=== PATIENT | female | born 1955 | race Hispanic/Latino ===

== ENCOUNTER 2022-12-23 11:29 | Inpatient (IN) | payer MEDICARE ==
[~2022-12-23] VITALS: Ht 157.5 cm; Wt 95.6 kg
[2022-12-23 12:58] LABS: BASOPHILS % (AUTO) 0.2 % (0.0-5.0); EOSINOPHILS % (AUTO) 0.9 % (0.0-8.0); HEMATOCRIT 44.8 % (36-48); LYMPHOCYTES % (AUTO) 26.1 % (21.0-51.0); MEAN CORPUSCULAR HGB CONC 30.1 g/dL (32.0-36.0); MEAN CORPUSCULAR VOLUME 79.7 fL (79-99); MONOCYTES % (AUTO) 4.5 % (3.0-13.0); PLATELET COUNT (AUTO) 342 K/uL (130-400); RED BLOOD CELL COUNT(AUTO) 5.62 MIL/uL (4.00-5.50); RED CELL DISTRIBUTION WIDTH 19.5 % (11.0-15.5); WHITE BLOOD COUNT (AUTO) 12.9 K/uL (4.8-10.8)
[2022-12-23 13:14] LABS: CARBON DIOXIDE 33 mmol/L (21-32); CHLORIDE 106 mmol/L (101-111); CREATININE 0.7 mg/dL (0.5-1.5); GLOMERULAR FILTR. RATE CALC 95 mL/min (>90); GLUCOSE,RANDOM 120 mg/dL (70-105); POTASSIUM 3.8 mmol/L (3.5-5.1); SODIUM SERUM 144 mmol/L (136-145); UREA NITROGEN, BLOOD 16 mg/dL (7-18)
[2022-12-23 13:17] LABS: ALANINE AMINOTRANSFERASE 20 U/L (12-78); ALBUMIN 3.6 g/dL (3.5-5.0); ASPARTATE AMINOTRANSFERASE 13 U/L (10-37); TOTAL PROTEIN, SERUM 7.6 g/dL (6.0-8.3)
[2022-12-23] MEDS ORDERED: POTASSIUM CHLORIDE 20MEQ/100ML 100 ML IV PRN ×2 (16:00)
[2022-12-23] MEDS ORDERED: NITROGLYCERIN 0.4 MG SL TAB SL PRN (16:00)
[2022-12-23] MEDS ORDERED: ALBUTEROL 0.083% 2.5 MG/3 ML INH IH PRN (16:00)
[2022-12-23] MEDS ORDERED: MAGNESIUM 2GM PREMIX 50ML 50 ML IV PRN (16:00)
[2022-12-23] MEDS ORDERED: GLUCAGON 1MG KIT 1 MG ML IM PRN (16:00)
[2022-12-23] MEDS ORDERED: ZOLPIDEM TARTRATE 5 MG TAB PO PRN (16:00)
[2022-12-23] MEDS ORDERED: HYDRALAZINE 25MG TABLET PO PRN (16:00)
[2022-12-23] MEDS ORDERED: GUAIFENESIN-DM 200/20 MG 10 ML PO PRN (16:00)
[2022-12-23] MEDS ORDERED: DEXTROSE 50%-WATER 50 ML DISP.SYRIN IV PRN (16:00)
[2022-12-23] MEDS ORDERED: ACETAMINOPHEN 325 MG TAB PO PRN ×2 (16:00)
[2022-12-23] MEDS ORDERED: POTASSIUM CHLORIDE 10% ELIXIR 20 MEQ/15 ML UDCUP PO PRN (16:00)
[2022-12-23] MEDS ORDERED: LOPERAMIDE HCL 2 MG CAP PO PRN (16:00)
[2022-12-23] MEDS ORDERED: POLYETHYLENE GLYCOL 3350 17 GM POWD.PACK PO PRN (16:00)
[2022-12-23] MEDS ORDERED: GUAIFENESIN SUGAR-FREE 100 MG/5 ML UDCUP PO PRN (16:00)
[2022-12-23] MEDS ORDERED: ONDANSETRON 4MG INJ IV PRN (16:00)
[2022-12-23] MEDS ORDERED: ARTIFICAL TEARS SOL 15 ML OP PRN (16:00)
[2022-12-23] MEDS ORDERED: ALPRAZOLAM 0.5 MG TABLET PO PRN (16:00)
[2022-12-23] MEDS ORDERED: DiphenhydrAMINE HCL 50 MG/ML VIAL IV PRN (16:00)
[2022-12-23] MEDS ORDERED: DOCUSATE SODIUM 100 MG CAP PO PRN (16:00)
[2022-12-23] MEDS: INSULIN HUMULIN R 100 UNIT/ML 3ML SQ SCH ×2 (16:30→21:00)
[2022-12-23] MEDS ORDERED: METF-445 PO (20:57)
[2022-12-23] MEDS ORDERED: ATOR20TA65 PO (20:57)
[2022-12-23] MEDS ORDERED: EMPA25TA PO (20:57)
[2022-12-23] MEDS: FAMOTIDINE 20MG VIAL IV SCH (21:51)
[2022-12-23] MEDS: SOLU-MEDROL 125MG VIAL IVP SCH (21:59)
[2022-12-24] MEDS: SOLU-MEDROL 125MG VIAL IVP SCH (03:00)
[2022-12-24 06:55] LABS: BASOPHILS % (AUTO) 0.2 % (0.0-5.0); LYMPHOCYTES % (AUTO) 9.5 % (21.0-51.0); MEAN CORPUSCULAR HEMOGLOBIN 24.2 pg (27.0-33.0); MEAN CORPUSCULAR HGB CONC 30.4 g/dL (32.0-36.0); MEAN CORPUSCULAR VOLUME 79.5 fL (79-99); MONOCYTES % (AUTO) 0.4 % (3.0-13.0); NEUTROPHILS % (AUTO) 89.4 % (40.0-77.0); PLATELET COUNT (AUTO) 300 K/uL (130-400); RED BLOOD CELL COUNT(AUTO) 5.66 MIL/uL (4.00-5.50); RED CELL DISTRIBUTION WIDTH 19.6 % (11.0-15.5); WHITE BLOOD COUNT (AUTO) 11.1 K/uL (4.8-10.8)
[2022-12-24 07:10] LABS: HEMOGLOBIN A1C 6.2 % (4.0-6.0)
[2022-12-24 07:11] LABS: ALBUMIN 3.4 g/dL (3.5-5.0); CREATININE 0.6 mg/dL (0.5-1.5); MAGNESIUM 1.9 mg/dL (1.80-2.40); POTASSIUM 3.8 mmol/L (3.5-5.1); TOTAL PROTEIN, SERUM 7.5 g/dL (6.0-8.3)
[2022-12-24] MEDS: INSULIN HUMULIN R 100 UNIT/ML 3ML SQ SCH ×3 (07:30→16:30)
[2022-12-24] MEDS ORDERED: PHARMACY COMMUNICATION MISC SCH (09:00)
[2022-12-24] MEDS: ENOXAPARIN SODIUM 40 MG/0.4 ML SYRINGE SQ SCH (09:41)
[2022-12-24] MEDS: FAMOTIDINE 20MG VIAL IV SCH ×2 (09:42→21:35)
[2022-12-24] MEDS: ATORVASTATIN 20 MG TABLET PO SCH (09:42)
[2022-12-24] MEDS: DEXAMETHASONE SOD PHOSPHATE 4 MG/ML 1ML VIAL IVP SCH ×3 (09:42→21:35)
[2022-12-24 15:12] LABS: ABG HCO3 21.7 mmol/L (21.0-28.0); ABG OXYGEN SATURATION 94.5 % (95.0-99.0); ABG PCO2 31 mmHg (32-45)
[2022-12-24 16:25] VITALS: BP 140/71
[2022-12-24 16:28] LABS: APPEARANCE,URINE CLEAR (CLEAR); BILIRUBIN,URINE NEGATIVE (NEGATIVE); COLOR,URINE LIGHT-YELLOW (YELLOW); GLUCOSE, URINE (UA) >=1000 mg/dL (NEGATIVE); KETONES,URINE 5 mg/dL (NEGATIVE); LEUKOCYTE ESTERASE ,URINE NEGATIVE Leu/uL (NEGATIVE); NITRATE,URINE NEGATIVE (NEGATIVE); OCCULT BLOOD,URINE NEGATIVE (NEGATIVE); PROTEIN,URINE NEGATIVE (NEGATIVE); UROBILINOGEN,URINE 0.2 mg/dL (0.2-1.0)
[2022-12-24 16:39] LABS: BACTERIA,URINE RARE /HPF (None Seen); RBC,URINE 0-1 /HPF (0-1); SQUAMOUS EPITHELIAL CELL,UR RARE /HPF (0-2); YEAST,URINE BUDDING RARE /HPF (None Seen)
[2022-12-24 16:49] LABS: INR 0.96 (0.85-1.15); PROTHROMBIN TIME 10.5 SEC (9.6-11.6)
[2022-12-24 16:50] LABS: PARTIAL THROMBOPLASTIN TIME 29.3 SEC (26.3-35.5)
[2022-12-24 19:49] VITALS: BP 153/67
[2022-12-24 23:53] VITALS: BP 143/73
[2022-12-25] VITALS (17 sets, daily range): BP systolic 112–174; BP diastolic 58–84
[2022-12-25 04:15] LABS: BASOPHILS % (AUTO) 0.1 % (0.0-5.0); MEAN CORPUSCULAR HEMOGLOBIN 24.7 pg (27.0-33.0); MEAN CORPUSCULAR HGB CONC 30.7 g/dL (32.0-36.0); MEAN CORPUSCULAR VOLUME 80.5 fL (79-99); MONOCYTES % (AUTO) 2.9 % (3.0-13.0); NEUTROPHILS % (AUTO) 89.3 % (40.0-77.0); PLATELET COUNT (AUTO) 350 K/uL (130-400); RED BLOOD CELL COUNT(AUTO) 5.22 MIL/uL (4.00-5.50); WHITE BLOOD COUNT (AUTO) 18.2 K/uL (4.8-10.8)
[2022-12-25 04:29] LABS: ALBUMIN 3.2 g/dL (3.5-5.0); CREATININE 0.9 mg/dL (0.5-1.5); MAGNESIUM 2.4 mg/dL (1.80-2.40); PHOSPHORUS 3.7 mg/dL (2.5-4.9); POTASSIUM 3.9 mmol/L (3.5-5.1); TOTAL PROTEIN, SERUM 6.9 g/dL (6.0-8.3)
[2022-12-25] MEDS ORDERED: CEFAZOLIN SODIUM 2 GM VIAL ONE (06:50)
[2022-12-25] MEDS ORDERED: THROMBIN-JMI 20000 UNIT KIT TP ONE (07:05)
[2022-12-25] MEDS ORDERED: CEFAZOLIN SODIUM 1 GM VIAL ONE (07:06)
[2022-12-25] MEDS: ATORVASTATIN 20 MG TABLET PO SCH (09:00)
[2022-12-25] MEDS: ENOXAPARIN SODIUM 40 MG/0.4 ML SYRINGE SQ SCH (09:00)
[2022-12-25] MEDS ORDERED: MANNITOL 20% 250ML BAG 250 ML IV ONE ×2 (10:08→10:37)
[2022-12-25] MEDS ORDERED: HYDROMORPHONE 1 MG INJ ONE (11:26)
[2022-12-25] MEDS ORDERED: MIDAZOLAM HCL 1 MG/ML 2ML VIAL ONE (11:33)
[2022-12-25] MEDS ORDERED: LIDOCAINE PF 100MG/5ML (2%) SYRINGE 5ML ONE (11:33)
[2022-12-25] MEDS ORDERED: SUCCINYLCHOLINE CHLORIDE 20 MG/ML 10 ML VIAL ONE (11:33)
[2022-12-25] MEDS ORDERED: PROPOFOL 10 MG/ML 20ML VIAL IV ONE ×2 (11:33→12:48)
[2022-12-25] MEDS ORDERED: ROCURONIUM 10MG/1ML SYR 10 MG/ML ML ONE (11:34)
[2022-12-25] MEDS ORDERED: FENTANYL CITRATE PF 50 MCG/1 ML 2ML VIAL ONE ×2 (11:34→16:09)
[2022-12-25] MEDS ORDERED: PROPOFOL 1000 MG/100 ML 100 ML IV ONE ×2 (11:35)
[2022-12-25] MEDS ORDERED: ONDANSETRON 4MG INJ ONE ×2 (12:36→16:30)
[2022-12-25] MEDS ORDERED: DEXAMETHASONE SOD PHOSPHATE 4 MG/ML 1ML VIAL ONE ×2 (12:52→12:53)
[2022-12-25] MEDS ORDERED: 0.9%NACL 10ML VIAL IVP PRN (15:30)
[2022-12-25] MEDS ORDERED: MORPHINE 2 MG SYG IVP PRN (15:30)
[2022-12-25] MEDS ORDERED: PROMETHAZINE HCL 25 MG/ML 1ML AMPULE IM PRN (15:30)
[2022-12-25] MEDS ORDERED: ALBUTEROL 0.083% 2.5 MG/3 ML INH IH PRN (16:00)
[2022-12-25] MEDS ORDERED: HYDRALAZINE 20MG/ML VIAL ONE (16:30)
[2022-12-25] MEDS ORDERED: ONDANSETRON 4MG INJ IVP ONE (17:00)
[2022-12-25] MEDS ORDERED: HYDRALAZINE 20MG/ML VIAL IV ONE (17:00)
[2022-12-25] MEDS ORDERED: CEFAZOLIN SODIUM 2 GM VIAL IVPB ONE (20:00)
[2022-12-25] MEDS: INSULIN HUMULIN R 100 UNIT/ML 3ML SQ SCH (20:39)
[2022-12-25] MEDS: FAMOTIDINE 20MG VIAL IV SCH (20:40)
[2022-12-25] MEDS: METFORMIN HCL 850 MG TABLET PO SCH (21:00)
[2022-12-25] MEDS: DEXAMETHASONE SOD PHOSPHATE 4 MG/ML 1ML VIAL IVP SCH (22:04)
[2022-12-26] MEDS: DEXAMETHASONE SOD PHOSPHATE 4 MG/ML 1ML VIAL IVP SCH ×3 (03:33→15:30)
[2022-12-26 04:15] LABS: HEMATOCRIT 40.6 % (36-48); MEAN CORPUSCULAR HEMOGLOBIN 24.6 pg (27.0-33.0); MEAN CORPUSCULAR HGB CONC 30.3 g/dL (32.0-36.0); MEAN CORPUSCULAR VOLUME 81.2 fL (79-99); RED CELL DISTRIBUTION WIDTH 19.7 % (11.0-15.5); WHITE BLOOD COUNT (AUTO) 19.8 K/uL (4.8-10.8)
[2022-12-26 04:22] VITALS: BP 137/64
[2022-12-26] MEDS: LACTATED RINGERS 1000ML 1,000 ML IV SCH ×2 (04:25→16:55)
[2022-12-26 04:51] LABS: CREATININE 0.6 mg/dL (0.5-1.5); POTASSIUM 3.7 mmol/L (3.5-5.1)
[2022-12-26] MEDS: INSULIN HUMULIN R 100 UNIT/ML 3ML SQ SCH ×4 (06:22→21:00)
[2022-12-26 08:00] VITALS: BP 150/76
[2022-12-26] MEDS: ATORVASTATIN 20 MG TABLET PO SCH (10:03)
[2022-12-26] MEDS: METFORMIN HCL 850 MG TABLET PO SCH ×2 (10:03→21:23)
[2022-12-26] MEDS: ENOXAPARIN SODIUM 40 MG/0.4 ML SYRINGE SQ SCH (10:03)
[2022-12-26] MEDS: FAMOTIDINE 20MG VIAL IV SCH ×2 (10:03→21:23)
[2022-12-26] MEDS: EMPAGLIFLOZIN 25MG TABLET PO SCH (10:03)
[2022-12-26 12:00] VITALS: BP 140/64
[2022-12-26 16:00] VITALS: BP 125/59
[2022-12-26 20:00] VITALS: BP 134/53
[2022-12-27] VITALS: BP 140/69
[2022-12-27 04:00] VITALS: BP 131/65
[2022-12-27] MEDS: INSULIN HUMULIN R 100 UNIT/ML 3ML SQ SCH ×4 (06:01→20:02)
[2022-12-27 08:00] VITALS: BP 129/61
[2022-12-27] MEDS: ATORVASTATIN 20 MG TABLET PO SCH (08:55)
[2022-12-27] MEDS: METFORMIN HCL 850 MG TABLET PO SCH ×2 (08:55→20:07)
[2022-12-27] MEDS: FAMOTIDINE 20MG VIAL IV SCH ×2 (08:55→20:07)
[2022-12-27] MEDS: EMPAGLIFLOZIN 25MG TABLET PO SCH (08:55)
[2022-12-27] MEDS: ENOXAPARIN SODIUM 40 MG/0.4 ML SYRINGE SQ SCH (08:56)
[2022-12-27] MEDS: KCL 20 MEQ ERTAB PO PRN ×2 (08:56→16:42)
[2022-12-27 11:43] VITALS: BP 130/69
[2022-12-27 16:00] VITALS: BP 125/67
[2022-12-27] MEDS: POLYETHYLENE GLYCOL 3350 17 GM POWD.PACK PO SCH (19:30)
[2022-12-27] MEDS ORDERED: ONDANSETRON 4MG INJ IVP PRN (19:30)
[2022-12-27 20:00] VITALS: BP 140/88
[2022-12-27] MEDS: HYDROCODONE/ACETAMINOPHEN 5/325 MG TAB PO PRN (20:16)
[2022-12-28] VITALS: BP 142/70
[2022-12-28 04:00] VITALS: BP 114/53
[2022-12-28 04:33] LABS: BASOPHILS % (AUTO) 0.1 % (0.0-5.0); EOSINOPHILS % (AUTO) 0.7 % (0.0-8.0); LYMPHOCYTES % (AUTO) 34.2 % (21.0-51.0); MEAN CORPUSCULAR HEMOGLOBIN 24.2 pg (27.0-33.0); MEAN CORPUSCULAR HGB CONC 29.5 g/dL (32.0-36.0); MONOCYTES % (AUTO) 7.5 % (3.0-13.0); NEUTROPHILS % (AUTO) 56.7 % (40.0-77.0); PLATELET COUNT (AUTO) 297 K/uL (130-400); RED BLOOD CELL COUNT(AUTO) 5.12 MIL/uL (4.00-5.50); RED CELL DISTRIBUTION WIDTH 19.3 % (11.0-15.5); WHITE BLOOD COUNT (AUTO) 12.3 K/uL (4.8-10.8)
[2022-12-28 04:49] LABS: CREATININE 0.6 mg/dL (0.5-1.5)
[2022-12-28] MEDS: INSULIN HUMULIN R 100 UNIT/ML 3ML SQ SCH ×4 (05:46→21:00)
[2022-12-28 08:00] VITALS: BP 148/74
[2022-12-28] MEDS: POLYETHYLENE GLYCOL 3350 17 GM POWD.PACK PO SCH (08:12)
[2022-12-28] MEDS: METFORMIN HCL 850 MG TABLET PO SCH ×2 (08:12→19:59)
[2022-12-28] MEDS: FAMOTIDINE 20MG VIAL IV SCH ×2 (08:12→19:59)
[2022-12-28] MEDS: ATORVASTATIN 20 MG TABLET PO SCH (08:12)
[2022-12-28] MEDS: EMPAGLIFLOZIN 25MG TABLET PO SCH (08:12)
[2022-12-28] MEDS: ENOXAPARIN SODIUM 40 MG/0.4 ML SYRINGE SQ SCH (08:13)
[2022-12-28 12:00] VITALS: BP 108/54
[2022-12-28 16:00] VITALS: BP 120/79
[2022-12-28] MEDS: HYDROCODONE/ACETAMINOPHEN 5/325 MG TAB PO PRN (19:59)
[2022-12-28 20:00] VITALS: BP 146/67
[2022-12-29] VITALS: BP 127/64
[2022-12-29 04:00] VITALS: BP 124/67
[2022-12-29 04:36] LABS: BASOPHILS % (AUTO) 0.1 % (0.0-5.0); LYMPHOCYTES % (AUTO) 33.8 % (21.0-51.0); MEAN CORPUSCULAR HEMOGLOBIN 24.5 pg (27.0-33.0); MEAN CORPUSCULAR HGB CONC 30.5 g/dL (32.0-36.0); MEAN CORPUSCULAR VOLUME 80.5 fL (79-99); MONOCYTES % (AUTO) 5.8 % (3.0-13.0); NEUTROPHILS % (AUTO) 58.6 % (40.0-77.0); PLATELET COUNT (AUTO) 325 K/uL (130-400); RED BLOOD CELL COUNT(AUTO) 5.34 MIL/uL (4.00-5.50); RED CELL DISTRIBUTION WIDTH 19.2 % (11.0-15.5); WHITE BLOOD COUNT (AUTO) 11.6 K/uL (4.8-10.8)
[2022-12-29 04:47] LABS: CREATININE 0.6 mg/dL (0.5-1.5)
[2022-12-29] MEDS: INSULIN HUMULIN R 100 UNIT/ML 3ML SQ SCH ×3 (05:56→15:58)
[2022-12-29 08:00] VITALS: BP 149/75
[2022-12-29] MEDS: POLYETHYLENE GLYCOL 3350 17 GM POWD.PACK PO SCH (09:53)
[2022-12-29] MEDS: EMPAGLIFLOZIN 25MG TABLET PO SCH (09:54)
[2022-12-29] MEDS: ATORVASTATIN 20 MG TABLET PO SCH (09:54)
[2022-12-29] MEDS: FAMOTIDINE 20MG VIAL IV SCH (09:54)
[2022-12-29] MEDS: METFORMIN HCL 850 MG TABLET PO SCH (09:54)
[2022-12-29] MEDS: ENOXAPARIN SODIUM 40 MG/0.4 ML SYRINGE SQ SCH (09:55)
[2022-12-29 11:23] VITALS: BP 133/66
== END 2022-12-29 17:30 | DRG 472 ==
LOC: EDH 11:29 → EDHIP 15:42 → 3CH 12-24 18:23 → 4AH 12-25 16:07
PROVIDERS: ADMIT Internal Medicine Critical Care Medicine; ATTEND Internal Medicine Critical Care Medicine
PROC: 0RG10J0 Fusion of Cervical Vertebral Joint with Synthetic Substitute, Anterior Approach, Anterior Column, Open Approach (ICD-10-PCS; principal; 2022-12-25 11:48)
DX: M50.021 Cervical disc disorder at C4-C5 level with myelopathy (principal); M47.12 Other spondylosis with myelopathy, cervical region; R29.6 Repeated falls; Z20.822 Contact with and (suspected) exposure to COVID-19; E11.9 Type 2 diabetes mellitus without complications; I10 Essential (primary) hypertension; Z68.38 Body mass index [BMI] 38.0-38.9, adult; E66.01 Morbid (severe) obesity due to excess calories; E78.00 Pure hypercholesterolemia, unspecified; Z96.653 Presence of artificial knee joint, bilateral; Z91.81 History of falling; Z98.1 Arthrodesis status
CPT/HCPCS: 36415; 36600; 70450; 70551; 71045; 72020; 72141; 72146; 72148; 80048; 80053; 81001; 82435; 82803; 82947; 82948; 83036; 83605; 83690; 83735; 84100; 84132; 84295; 84443; 84484; 85018; 85025; 85027; 85610; 85730; 87040; 87635; 87804; 93005; 93880; 94010; 97039; G0378; J0330; J0360; J0690; J1100; J1170; J1650; J2001; J2250; J2405; J2704; J2930; J3010; J3490

== ENCOUNTER → 2023-01-23 | Outpatient (CLI) | payer MEDICARE ==
[~2023-01-23] MED LIST: ATOR20TA65 PO; EMPA25TA PO; METF-445 PO
== END | disposition home or self-care (01) ==
LOC: RAH 08:48
PROVIDERS: ATTEND Neurological Surgery
DX: M43.22 Fusion of spine, cervical region (principal); M47.812 Spondylosis without myelopathy or radiculopathy, cervical region
CPT/HCPCS: 72040

== ENCOUNTER → 2023-07-07 | Outpatient (CLI) | payer MEDICARE | END | disposition home or self-care (01) | LOC: RAH 11:04 | PROVIDERS: ATTEND Neurological Surgery | DX: M48.02 Spinal stenosis, cervical region (principal); M43.22 Fusion of spine, cervical region; M50.221 Other cervical disc displacement at C4-C5 level; G99.2 Myelopathy in diseases classified elsewhere; M96.1 Postlaminectomy syndrome, not elsewhere classified; M54.12 Radiculopathy, cervical region; R26.89 Other abnormalities of gait and mobility | CPT/HCPCS: 72141 ==

== ENCOUNTER → 2023-11-19 | Outpatient (CLI) | payer MEDICARE | END | disposition home or self-care (01) | LOC: RAH 09:59 | PROVIDERS: ATTEND Neurological Surgery | DX: Z47.89 Encounter for other orthopedic aftercare (principal); R22.43 Localized swelling, mass and lump, lower limb, bilateral | CPT/HCPCS: 93970 ==

== ENCOUNTER → 2023-12-04 | Outpatient (CLI) | payer MEDICARE | END | disposition home or self-care (01) | LOC: RAH 13:55 | PROVIDERS: ATTEND Neurological Surgery | DX: Z47.89 Encounter for other orthopedic aftercare (principal); T81.89XA Other complications of procedures, not elsewhere classified, initial encounter; M47.816 Spondylosis without myelopathy or radiculopathy, lumbar region; M48.061 Spinal stenosis, lumbar region without neurogenic claudication; M51.36 Other intervertebral disc degeneration, lumbar region; R16.0 Hepatomegaly, not elsewhere classified | CPT/HCPCS: 72148 ==

== ENCOUNTER → 2024-01-15 | Outpatient (CLI) | payer MEDICARE | END | disposition home or self-care (01) | LOC: RAH 14:18 | PROVIDERS: ATTEND Neurological Surgery | DX: M47.812 Spondylosis without myelopathy or radiculopathy, cervical region (principal); M50.31 Other cervical disc degeneration, high cervical region; M50.323 Other cervical disc degeneration at C6-C7 level; M50.322 Other cervical disc degeneration at C5-C6 level; M50.321 Other cervical disc degeneration at C4-C5 level; G99.2 Myelopathy in diseases classified elsewhere; M48.02 Spinal stenosis, cervical region; R26.89 Other abnormalities of gait and mobility; M96.1 Postlaminectomy syndrome, not elsewhere classified | CPT/HCPCS: 72141 ==

== ENCOUNTER → 2024-05-09 | Outpatient (CLI) | payer MEDICARE | END | disposition home or self-care (01) | LOC: RAH 11:46 | PROVIDERS: ATTEND Physician Assistant Surgical | DX: Z48.89 Encounter for other specified surgical aftercare (principal); M47.812 Spondylosis without myelopathy or radiculopathy, cervical region; Z98.1 Arthrodesis status | CPT/HCPCS: 72040 ==

== ENCOUNTER → 2024-08-30 | Outpatient (CLI) | payer OTHER ==
[~2024-08-30] MED LIST changes: +GADOTERATE MEGLUMINE 10 MMOL/20 ML VIAL IV ONE
--- NOTE | 2024-08-30 14:26 | HMCIMG ---
Exam Type: MR SPINAL CANAL, LUMB W/WO CON Clinical Information: Postlaminectomy syndrome, not elsewhere classified Comparison: None Findings: Status post posterior fusion and decompression L4-L5. Grade 1 anterolisthesis of L4 over 5, chronic. Multilevel disc protrusions with mild neural foraminal narrowing and nerve root impingement at each level. This is compounded by facet joint hypertrophy at all levels. No acute fractures or dislocations. IMPRESSION: Degenerative and chronic changes. After contrast administration, there is no abnormal enhancement.
--- NOTE | 2024-08-30 14:29 | HMCIMG ---
Exam Type: MR SPINAL CANAL, CERV W/WO CON Clinical Information: M96.1 Postlaminectomy syndrome, not elsewhere classified Comparison: None Findings: Reversal of normal cervical lordosis consistent with spasm. Status post postoperative fusion of the C3-4, C4-5 and C5-6 discs. High signal intensity of the cord at the C4-5 level is suggestive of myelomalacia, possibly from prior impingement. At this time, no cord compression is seen. No large protrusions or extrusions. IMPRESSION: Postoperative and degenerative changes. After contrast administration, there is no abnormal enhancement.
== END | disposition home or self-care (01) ==
LOC: RAH 12:47
PROVIDERS: ATTEND Neurological Surgery
DX: M47.26 Other spondylosis with radiculopathy, lumbar region (principal); M47.22 Other spondylosis with radiculopathy, cervical region; M43.16 Spondylolisthesis, lumbar region; M48.061 Spinal stenosis, lumbar region without neurogenic claudication; M96.1 Postlaminectomy syndrome, not elsewhere classified; Z98.1 Arthrodesis status; G99.2 Myelopathy in diseases classified elsewhere
CPT/HCPCS: 72156; 72158; A9575

== ENCOUNTER → 2024-11-25 | Outpatient (CLI) | payer OTHER ==
[~2024-11-25] MED LIST changes: -GADOTERATE MEGLUMINE 10 MMOL/20 ML VIAL IV ONE
== END | disposition home or self-care (01) ==
LOC: RAH 13:47
PROVIDERS: ATTEND Nurse Practitioner Family
DX: Z12.31 Encounter for screening mammogram for malignant neoplasm of breast (principal)
CPT/HCPCS: 77067

== ENCOUNTER 2025-03-21 07:59 | Day surgery (SDC) | payer OTHER ==
[2025-03-20 12:54] LABS: CREATININE 0.8 mg/dL (0.5-1.0); GLOMERULAR FILTR. RATE CALC 80.0 mL/min (>90); GLUCOSE,RANDOM 131.0 mg/dL (70-105); SODIUM SERUM 141.0 mmol/L (136-145); UREA NITROGEN, BLOOD 14.0 mg/dL (7-18)
[2025-03-20 12:58] VITALS: BP 143/62; PULSE 93; RESP 17; TEMP 97.7
[2025-03-21] VITALS (13 sets, daily range): BP systolic 126–164; BP diastolic 56–82; PULSE 61–79; RESP 12–21; TEMP 97.2–97.9
[~2025-03-21] VITALS: Ht 157.5 cm; Wt 102.4 kg
[~2025-03-21 07:59] MED LIST changes: -EMPA25TA PO; +GABA-529 PO; +METF-444 PO; -METF-445 PO
[2025-03-21] MEDS ORDERED: 0.9%NACL 1000ML 1,000 ML IV ONE (08:36)
[2025-03-21] MEDS ORDERED: MIDAZOLAM HCL 1 MG/ML 2ML VIAL ONE (09:16)
[2025-03-21] MEDS ORDERED: LIDOCAINE PF 100MG/5ML (2%) SYRINGE 5ML ONE (09:16)
[2025-03-21] MEDS ORDERED: ACET-2079 PO (10:40)
--- NOTE | 2025-03-21 10:46 | OP ---
Operative Note: DATE OF PROCEDURE: 03/21/25 SURGEON: LOS POLK MD SLITTER AND REWINDER MACHINE OPERATOR: [Janny Meadows CFA] ANESTHESIA: [General anesthesia plus local] ANESTHESIOLOGIST/AUTOMOTIVE MECHANICAL ENGINEER: [Robert Montelongo CRNA] PREOPERATIVE DIAGNOSIS: [Left upper extremity carpal tunnel syndrome] POSTOPERATIVE DIAGNOSIS: [Same] PROCEDURE: [Left carpal tunnel release] ESTIMATED BLOOD LOSS: [Less than 10 mL] INDICATIONS: [The patient is a 69-year-old female with a history of carpal tunnel syndrome bilaterally being admitted for a carpal tunnel release after failing conservative treatment. The patient reports a history that many years ago she had a carpal release but the examination revealed no surgical scars. The patient is brought to the operating room for an open carpal tunnel release procedure that she understood, risks, benefits and possible complications and agreed signed the consent form] DESCRIPTION OF PROCEDURE: [ [After adequate general anesthesia was achieved, the left arm was prepped and draped in the usual manner previous placement of the tourniquet in the proximal arm. The extremity was exsanguinated and the tourniquet was inflated to 250 mmHg. Attention was given to the volar aspect of the wrist where after identification of the landmarks we proceeded to make a curvilinear incision through the skin starting at the inter-thenar area and then extending it proximally along the ulnar side of the palmaris longus tendon. The dissection was then extended into the subcutaneous tissue identifying proxi nick the palmar fascia of the forearm which was then opened and then elevating it to separate from the median nerve and we proceeded then to split proximally under the skin. Then we directed the tenotomy scissors distally and split the fascia down to the carpal ligament protecting the nerve with a [place] retractor. At this point we use a freer to dissect the synovial tissue from the undersurface of the carpal ligament through the canal and after this was achieved we proceeded to gradually cut through the ligament with the 15 blade in a longitudinal manner having the retractor under the ligament to protect the nerve. Once we reached the distal end of the ligament we proceeded to spread the fibers with a hemostat, the nerve was explored and noted to be intact. There were no signs of previous surgery in this area. The medial nerve show thinning on its diameter of the carpal ligament area. The wound was irrigated with antibiotic solution and then we proceeded to infiltrate the periphery of the wound with 1% lidocaine in the subcutaneous tissue and after this was achieved we proceeded to pack the wound and slowly deflated the tourniquet. Further irrigation was done and minimal bleeders were controlled with the use of the Bovie cautery. The wound was then closed with approximation of the subcutaneous tissue with #3-0 Vicryl inverted stitches and the skin was closed with 3-0 nylon vertical mattress stitches. The wound was covered with Xeroform, 4 x 4 and then we proceeded to apply a soft dressing with cast padding followed by application of an Isiah bandage. The drapes were removed and the patient was transferred to a stretcher and taken to recovery room for follow-up by anesthesia. There were no complications during the procedure.] LOS POLK MD Mar 21, 2025 10:46
--- NOTE | 2025-03-21 12:15 | NUR ---
BOTH PT AND SPOUSE GIVEN VERBAL AND WRITTEN DISCHARGE INSTRUCTIONS. IV REMOVED SITE ASYMPTOMATIC. PT TAKEN OUT VIA WHEELCHAIR SPOUSE DRIVING.
== END 2025-03-21 12:25 | disposition home or self-care (01) ==
LOC: DAH 07:59
PROVIDERS: ATTEND Orthopaedic Surgery
DX: G56.02 Carpal tunnel syndrome, left upper limb (principal); M25.512 Pain in left shoulder; M75.102 Unspecified rotator cuff tear or rupture of left shoulder, not specified as traumatic; I10 Essential (primary) hypertension; E11.9 Type 2 diabetes mellitus without complications; Z96.653 Presence of artificial knee joint, bilateral; Z90.710 Acquired absence of both cervix and uterus; Z98.42 Cataract extraction status, left eye; Z98.41 Cataract extraction status, right eye; Z98.1 Arthrodesis status; Z79.84 Long term (current) use of oral hypoglycemic drugs; Z79.899 Other long term (current) drug therapy
CPT/HCPCS: 80048; 36415; 64721; 82948 ×2; J1100; A4663; J3010; J0690 ×4; J7030; J0665 ×2; J2003; J2250; J2704; J2405 ×2; J2371; A6223; A4649; A4930; A5120; A4213; A4222; A4221; A4216; A4223 ×2; J3490

== ENCOUNTER 2025-05-30 06:22 | Day surgery (SDC) | payer OTHER ==
--- NOTE | 2025-05-26 14:24 | EKG ---
[facility] Test Date: 2025-05-26 Test Time: 14:22:55 Pat Name: AGUEDA FRANCES Department: [facility] Room: Gender: F Retrieval Specialist: [id number] : 1955 Requested By: LOS POLK Order Number: [id number] Reading MD: Mitchell Yarbrough Measurements Intervals [place] Rate: 73 P: 60 DE: 150 QRS: 4 QRSD: 86 T: 18 QT: 392 QTc: 431 Interpretive Statements Normal sinus rhythm Electronically Signed On 05-27-2025 15:12:17 CDT by Mitchell Yarbrough Please click the below link to view image of tracing.
[2025-05-26 14:30] LABS: IMMATURE GRANULOCYTE ABSOLUTE 0.05 K/uL (0-1); NUCLEATED RED BLOOD CELLS 0.0 % (0.0-0.19); PLATELET COUNT (AUTO) 306 K/uL (130-400); RED BLOOD CELL COUNT(AUTO) 4.75 MIL/uL (4.00-5.50); RED CELL DISTRIBUTION WIDTH 16.0 % (11.0-15.5); WHITE BLOOD COUNT (AUTO) 10.0 K/uL (4.8-10.8)
[2025-05-26 14:39] LABS: CREATININE 0.6 mg/dL (0.5-1.0); GLOMERULAR FILTR. RATE CALC 98.0 mL/min (>90); GLUCOSE,RANDOM 119.0 mg/dL (70-105); SODIUM SERUM 140.0 mmol/L (136-145); UREA NITROGEN, BLOOD 15.0 mg/dL (7-18)
[2025-05-26 15:12] VITALS: BP 152/70; PULSE 76; RESP 17; TEMP 97.7
--- NOTE | 2025-05-29 10:08 | NUR ---
RE: EKG REPORTED EKG RESULTS TO DR LINARES, NO NEW ORDERS RECEIVED. OK TO PROCEED.
[~2025-05-30] VITALS: Ht 157.5 cm; Wt 100.1 kg
[2025-05-30] VITALS (13 sets, daily range): BP systolic 129–164; BP diastolic 49–79; PULSE 75–83; RESP 14–20; TEMP 97.1–97.5
[~2025-05-30 06:22] MED LIST changes: +ACET-2079 PO; -GABA-529 PO
[2025-05-30] MEDS ORDERED: MIDAZOLAM HCL 1 MG/ML 2ML VIAL ONE (07:14)
[2025-05-30] MEDS ORDERED: 0.9%NACL 1000ML 1,000 ML IV ONE (07:14)
[2025-05-30] MEDS ORDERED: LIDOCAINE PF 100MG/5ML (2%) SYRINGE 5ML ONE (07:14)
[2025-05-30] MEDS ORDERED: PROMETHAZINE HCL 25 MG/ML 1ML AMPULE IM PRN (08:00)
[2025-05-30] MEDS ORDERED: ACET-2079 PO ×2 (09:41→09:46)
[2025-05-30] MEDS ORDERED: CEPH500B PO (09:41)
--- NOTE | 2025-05-30 11:20 | NUR ---
NO ALCOHOL X [address] FOR 24 HOURS APPOINTMENT WITH YOUR DOCTOR CALL YOUR DOCTOR IF YOU HAVE SIGNS OF INFECTION: INCREASED SWELLING, REDNESS, DISCHARGE, FEVER CALL YOUR DOCTOR IF YOU HAVE WORSENING PAIN OR ANY CONCERNS.FOLLOW DISCHARGE INSTRUCTIONS EDUCATIONAL HANDOUTS PROVIDED AND SIGNED FOR. WEAR SLING WHEN OUT OF BED AND AMBULATING.
--- NOTE | 2025-05-30 11:41 | OP ---
Operative Note: DATE OF PROCEDURE: 05/30/25 SURGEON: LOS POLK MD CAR RENTAL SERVICE ATTENDANT: [Janny Meadows CFA] ANESTHESIA: [General anesthesia plus local anesthetic] ANESTHESIOLOGIST/DRUG SAFETY SPECIALIST: [Lidna Bui CRNA] PREOPERATIVE DIAGNOSIS: [Right carpal tunnel syndrome] POSTOPERATIVE DIAGNOSIS: [Same] PROCEDURE: [Open right carpal tunnel release] ESTIMATED BLOOD LOSS: [5 ML] INDICATIONS: [The patient is a 69-year-old female with a history of pain to the right hand associated with numbness in median distribution. Clinically the patient had carpal tunnel syndrome which was confirmed by nerve studies that were performed. Status post left carpal tunnel release recently. The patient understands the procedure, risks, benefits and possible complications and has signed the consent form] DESCRIPTION OF PROCEDURE: [ [After adequate general anesthesia was achieved, the right upper extremity was prepped and draped in the usual manner. Attention was given to the volar aspect of the wrist where after identification of the landmarks we proceeded to make a curvilinear incision through the skin starting at the inter-thenar area and then extending it proximally along the ulnar side of the palmaris longus tendon. The dissection was then extended into the subcutaneous tissue identifying proximally the palmar fascia of the forearm which was then opened and then elevating it to separate from the median nerve and we proceeded then to split proximally under the skin. Then we directed the tenotomy scissors distally and split the fascia down to the carpal ligament protecting the nerve with a [place] retractor. At this point we use this retractor to dissect the synovial tissue from the undersurface of the carpal ligament through the canal and after this was achieved we proceeded to gradually cut through the ligament with the 15 blade in a longitudinal manner, as well as with the tenotomy scissors, having the retractor under the ligament to protect the nerve. Once we reached the distal end of the ligament we proceeded to spread the fibers with a hemostat, the nerve was explored and noted to be intact but has significant amount of contraction in an hour glass shape of the level of the carpal ligament. The wound was irrigated with antibiotic solution and t hen we proceeded to infiltrate the periphery of the wound with 1% lidocaine in the subcutaneous tissue and after this was achieved we proceeded to pack the wound and deflate the tourniquet. Further irrigation was done and minimal bleeders were controlled with the use of the Bovie cautery. The wound was then closed with approximation of the subcutaneous tissue with #3-0 Vicryl inverted stitches and the skin was closed with 3-0 nylon vertical mattress stitches. The wound was covered with Xeroform, 4 x 4 and then we proceeded to apply a soft dressing with cast padding followed by application of an Isiah bandage. The drapes were removed and the patient was transferred to a stretcher and taken to recovery room for follow-up by anesthesia. There were no complications during the procedure.] LOS POLK MD May 30, 2025 11:41
--- NOTE | 2025-05-30 13:00 | NUR ---
PIV REMOVED. PATIENT SENT HOME W/C TO POV WITH . NEUROVASCULARLY INTACT.
== END 2025-05-30 11:25 | disposition home or self-care (01) ==
LOC: DAH 06:22
PROVIDERS: ATTEND Orthopaedic Surgery
DX: G56.01 Carpal tunnel syndrome, right upper limb (principal); I10 Essential (primary) hypertension; E11.9 Type 2 diabetes mellitus without complications; E78.5 Hyperlipidemia, unspecified; E66.9 Obesity, unspecified; Z68.37 Body mass index [BMI] 37.0-37.9, adult; Z90.710 Acquired absence of both cervix and uterus; Z82.49 Family history of ischemic heart disease and other diseases of the circulatory system; Z79.899 Other long term (current) drug therapy; Z98.890 Other specified postprocedural states
CPT/HCPCS: 80048; 85025; 36415; 93005; 64721; 82948 ×2; J1885; A4663; J3010 ×3; J0690 ×4; J1100; J7030; J0665 ×2; J2003; J3490 ×2; J2250; J2704; J2405; J2371; A6223; A4649; A4930 ×3; A5120; A4215; A4213; A4222; A4221; A4216; A4223 ×2